=== PATIENT | male | born 1980 | race Caucasian/White ===

== ENCOUNTER 2023-11-04 20:35 | Emergency (ER) | payer OTHER ==
[~2023-11-04] VITALS: Ht 162.6 cm; Wt 79.4 kg
[2023-11-04 20:35] VITALS: BP 140/92; PULSE 110; RESP 20; TEMP 98; O2SAT 98
[2023-11-04 22:47] VITALS: BP 135/77; PULSE 94; RESP 17; O2SAT 97
== END 2023-11-05 00:49 | disposition short-term general hospital (02) ==
LOC: MED 20:35
DX: S02.40FA Zygomatic fracture, left side, initial encounter for closed fracture (principal); S80.212A Abrasion, left knee, initial encounter; Y08.89XA Assault by other specified means, initial encounter; Y93.89 Activity, other specified; Y92.89 Other specified places as the place of occurrence of the external cause; Y99.8 Other external cause status
CPT/HCPCS: 70450; 70486; 72125; 90471; 90715; 99285